=== PATIENT | female | born 1945 | race Caucasian/White ===

== ENCOUNTER 2018-03-20 13:45 | Inpatient (IN) | payer OTHER ==
[~2018-03-20] VITALS: Ht 157.5 cm; Wt 65.3 kg
[~2018-03-20 13:45] MED LIST: NEURONTIN300 MG PO; VERAPAMIL ER240 MG PO; [UNRECOGNIZED DRUG - OTHER]
[2018-03-27] MEDS ORDERED: DOCUSATE SODIU100 MG PO (09:54)
[2018-03-27] MEDS ORDERED: CLONAZEPAM1 MG PO (09:55)
[2018-03-27] MEDS ORDERED: PERCOCET 5-3251 EACH PO (09:55)
== END 2018-03-27 13:31 | disposition home or self-care (01) | DRG 472 ==
LOC: O/R 03-26 05:10 → PED 03-26 05:10 → SURH 03-26 13:45 → PED 03-26 15:37 → SURH 03-26 16:45 → PED 03-27 13:31
PROVIDERS: Orthopaedic Surgery Orthopaedic Surgery of the Spine
PROC: 0RG20A0 Fusion of 2 or more Cervical Vertebral Joints with Interbody Fusion Device, Anterior Approach, Anterior Column, Open Approach (ICD-10-PCS; 2018-03-26)
PROC: 0RT30ZZ Resection of Cervical Vertebral Disc, Open Approach (ICD-10-PCS; principal; 2018-03-26 16:45)
DX: M47.12 Other spondylosis with myelopathy, cervical region (principal); M50.023 Cervical disc disorder at C6-C7 level with myelopathy; I10 Essential (primary) hypertension

== ENCOUNTER 2018-05-24 13:17 | Outpatient (CLI) | payer OTHER ==
[~2018-05-24 13:17] MED LIST changes: +CLONAZEPAM1 MG PO; +DOCUSATE SODIU100 MG PO; +PERCOCET 5-3251 EACH PO
== END 2018-05-24 13:23 | disposition home or self-care (01) ==
LOC: RAD 13:17
DX: M50.00 Cervical disc disorder with myelopathy, unspecified cervical region (principal); Z98.1 Arthrodesis status

== ENCOUNTER 2020-12-02 10:12 | Outpatient (CLI) | payer OTHER | END 2020-12-02 10:20 | disposition home or self-care (01) | LOC: RAD 10:12 | PROVIDERS: ATTEND Ophthalmology | DX: I10 Essential (primary) hypertension (principal); H25.011 Cortical age-related cataract, right eye; Z98.41 Cataract extraction status, right eye ==